=== PATIENT | male | born 1980 | race Caucasian/White ===

== ENCOUNTER → 2018-05-08 | Day surgery (SDC) | payer BC ==
[~2018-05-08] MED LIST: AMBIEN 10 MG TA10 MG PO; AMBIEN 5 MG TABL5 M1 PO; ATIVAN1 MG PO; ERYTHROMYCIN E3.5 G1 OP; FLEXERIL PO; GABAPENTIN; HYDROCODON-ACE1 EAC7 PO; LISINOPRIL10 MG PO; NOHOMEMEDICATIONS; NORCO 5-325 TA1 EACH PO; PENICILLIN VK500 M1 PO; PERCOCET 5-3251 EACH PO; XANAX 0.25 MG0.25 MG PO; XANAX1 MG PO
--- NOTE | ~2018-05-08 | OP ---
[address] [id number] OPERATIVE REPORT Name: ANGELIQUE BECKMAN III Room: [facility]#: [id number] Admission: 05/08/18 Attend Phys: Mynor Dan DO Discharge: Date of : 78 Report #: [id number] THIS REPORT FOR: //name// CC: Mynor Busch MD DATE OF SERVICE: 05/08/2018 REFERRING PHYSICIAN: Dr. Ravindra Busch. PREOPERATIVE DIAGNOSIS: Incarcerated epigastric hernia. POSTOPERATIVE DIAGNOSIS: Incarcerated epigastric hernia. PROCEDURE: Incarcerated epigastric hernia repair with [address] mesh. SURGEON: Mynor Dan DO. CLINICAL EDUCATION COORDINATOR: Danica Dorado. SECOND DOCTOR OF VETERINARY MEDICINE: PA student, Elenita Lopez, she is a PA student year two. ANESTHESIA: General endotracheal. ESTIMATED BLOOD LOSS: Less than 30 mL. COMPLICATIONS: None. DESCRIPTION OF PROCEDURE: After obtaining proper consents and discussing risks and complications with the patient, he was taken to the operating room, laid on the supine position, administered general endotracheal anesthetic. He was then prepped and draped in the usual fashion. A nakia had been placed over the site of the patient's pain prior to taking back to the operating room, timeout was performed. We confirmed the appropriate patient and procedure. Preoperative antibiotics were given. SCDs were in place. We then made a midline supraumbilical skin incision with a #15 scalpel blade. This was carried down through the skin into the subcutaneous tissue using electrocautery for hemostasis. Once the hernia defect was identified, it was completely dissected free. The hernia sac was very firm and hard and appeared to contain just omentum and preperitoneal fat. The hernia sac was completely dissected free all the way down to the fascial defect which was a fairly small fascial defect. The hernia sac was then opened and its contents were inspected. This appeared to be just some omentum, which we elected to excise because it did look a little dusky, so electrocautery was used to carefully remove the omentum and preperitoneal fat. This was then passed off along with [place] [address] OPERATIVE REPORT Name: ANGELIQUE BECKMAN III Room: [facility].#: [id number] Admission: 05/08/18 Attend Phys: Mynor Dan DO Discharge: Date of : 78 Report #: [id number] specimen. We then measured the defect, which was really only approximately less than 2 cm in diameter. We elected to use an [address] mesh, which was placed intraperitoneally. Prior to placing this, we did assure there were no adhesions and there was a good flat landing zone for the mesh. We then sutured the mesh in place, incorporating it into the fascial closure using 0 Prolene suture. The subcutaneous tissues were then injected with 0.5% Marcaine without epinephrine and closed using 3-0 Vicryl suture for the deeper subcutaneous tissue and the skin was closed using 4-0 Monocryl subcuticular stitches. Mastisol, Steri-Strips, sterile OpSite and pressure dressing were placed. The patient tolerated the procedure well. By: [id number] Dan DO /anna
[2018-05-08 10:03] LABS: HEMATOCRIT 47.7 % (42.0-52.0)
== END | disposition home or self-care (01) ==
LOC: M.SUR 08:59
PROVIDERS: Student in an Organized Health Care Education/Training Program
DX: K43.6 Other and unspecified ventral hernia with obstruction, without gangrene (principal); Z98.890 Other specified postprocedural states; Z79.899 Other long term (current) drug therapy